=== PATIENT | female | born 1995 | race Caucasian/White ===

== ENCOUNTER 2017-10-24 22:28 | Emergency (ER) | payer SELFPAY ==
[~2017-10-24] VITALS: Ht 165.1 cm; Wt 84.0 kg
[2017-10-24 22:30] VITALS: BP 145/85
== END 2017-10-24 23:08 | disposition left against medical advice (07) ==
LOC: ER 22:36
DX: F41.0 Panic disorder [episodic paroxysmal anxiety] (principal); Z53.21 Procedure and treatment not carried out due to patient leaving prior to being seen by health care provider